=== PATIENT | female | born 1965 | race Caucasian/White ===

== ENCOUNTER 2016-07-20 12:36 | Day surgery (SDC) | payer OTHER ==
[~2016-07-20] VITALS: Ht 162.6 cm; Wt 73.0 kg
[~2016-07-20 12:36] MED LIST: ADVIL200 MG PO; BUSPAR15 MG PO; CLARITIN10 M3 PO; DAILY VALUE1 EACH PO; FLONASE ALLERG9.9 ML BOTH NARES; HYDROCODON-ACE1 EAC7 PO; KLONOPIN0.5 M1 PO; MIRENA52 MG IY; PRILOSEC20 MG PO; SINGULAIR10 MG PO; TEGRETOL-XR,CA400 MG PO; VALTREX1000 MG PO; VITAMIN D1000 INTUN PO; VITAMIN D31000 UNIT PO; ZESTRIL10 MG PO; ZOLOFT100 MG PO
[2016-07-20 13:44] VITALS: BP 126/73
[2016-07-20 14:01] LABS: ANION GAP 8 MEQ/L (2-14); CHLORIDE 102 MEQ/L (99-109); POTASSIUM 4.2 MEQ/L (3.7-5.4); SAMPLE HEMOLYSIS CHECK 0; SAMPLE ICTERIC CHECK 0; SAMPLE LIPEMIA CHECK 0; SODIUM 138 MEQ/L (136-147); TOTAL BILIRUBIN 0.3 MG/DL (0.0-1.0)
[2016-07-20 14:02] LABS: INTER. NORMALIZED RATIO 1.1; PROTHROMBIN TIME 10.7 (9.2-11.2)
[2016-07-20 14:06] LABS: BASOPHIL COUNT 0.1 K/uL (0-0.1); EOSINOPHIL (%) 1.3 % (0-5); EOSINOPHIL COUNT 0.1 K/uL (0-0.3); HEMATOCRIT 35.4 % (36.0-46.0); IMMATURE GRANULOCYTE (%) 0.6 % (0.0-0.7); INSTRUMENT ABS NEUTROPHIL CT 3.8 K/uL; LYMPHOCYTE COUNT 1.9 K/uL (1.0-2.8); MCHC 32.8 G/DL (30.0-36.0); MCV 91.5 FL (83-99); MEAN PLAT.VOLUME 11.3 uM^3 (9.5-12.4); MONOCYTE (%) 7.8 % (3-12); MONOCYTE COUNT 0.5 K/uL (0-0.8); NEUTROPHIL (%) 59.4 % (45-76); NEUTROPHIL COUNT 3.8 K/uL (1.8-6.4); PLATELET COUNT 231 K/uL (156-360); RBC DIS.WIDTH-CV 13.7 % (11.8-14.6); RBC DIS.WIDTH-SD 46.5 % (39-53); RED BLOOD COUNT 3.87 M/uL (3.80-5.20); WHITE BLOOD COUNT 6.4 K/uL (4.1-10.2)
[2016-07-20 14:07] LABS: ALKALINE PHOSPHATASE 64 IU/L (3-129); GFR ESTIMATE (CALCULATED) > 59 mL/min/; GLUCOSE 87 mg/dL (70-99); UREA NITROGEN (BUN) 11 mg/dL (9-23)
[2016-07-20] MEDS ORDERED: NORCO 5/3251 TABLET PO (16:48)
[2016-07-20] MEDS ORDERED: COLACE100 MG PO (16:48)
[2016-07-20 19:00] VITALS: BP 133/69
[2016-07-20 20:21] VITALS: BP 119/65
== END 2016-07-20 20:30 | disposition home or self-care (01) ==
LOC: SDC 12:36
PROVIDERS: Thoracic Surgery (Cardiothoracic Vascular Surgery)
PROC: 0WUF0JZ Supplement Abdominal Wall with Synthetic Substitute, Open Approach (ICD-10-PCS; principal; 2016-07-20)
DX: K43.6 Other and unspecified ventral hernia with obstruction, without gangrene (principal); I10 Essential (primary) hypertension; K21.9 Gastro-esophageal reflux disease without esophagitis; Z86.69 Personal history of other diseases of the nervous system and sense organs; Z88.8 Allergy status to other drugs, medicaments and biological substances
CPT/HCPCS: 80053; 85025; 85610; 93005; C1781; J0330; J0690; J0696; J1100; J1170; J1885; J2405; J2710; J2765; J3010; J7050